=== PATIENT | male | born 1970 | race Caucasian/White ===

== ENCOUNTER 2017-03-02 20:57 | Inpatient (IN) | payer OTHER ==
[~2017-03-02 20:57] MED LIST: AMLO5 PO; CABE0.5T PO; LISI-586 PO; MULT-135 PO; VIAG100T PO
[2017-03-02 20:59] VITALS: BP 151/74; PULSE 66; RESP 16; TEMP 97.8; O2SAT 98
[2017-03-02 22:33] VITALS: BP 162/82; PULSE 65; RESP 18; O2SAT 98
[2017-03-02] MEDS ORDERED: SODIUM CHLOR 0.9% 1000 ML INJ 1,000 ML IV SCH (22:46)
[2017-03-02 22:48] VITALS: O2SAT 96
[2017-03-02] MEDS ORDERED: ONDANSETRON HCL 4 MG/2 ML VIAL IVP ONE (23:00)
[2017-03-02] MEDS ORDERED: HYDROmorphone HCL PF 1 MG/ML VIAL IVS ONE (23:00)
[2017-03-02] MEDS ORDERED: SODIUM CHLORIDE 0.9% FLUSH 10 ML FLUSH IV FLUSH PRN (23:00)
[2017-03-02 23:08] LABS: AUTOMATED NEUTROPHIL # 13.1 TH/MM3 (1.8-7.7); BASOPHIL # 0.1 TH/MM3 (0-0.2); BASOPHIL % 0.5 % (0.0-2.0); HEMATOCRIT 42.6 % (39.0-51.0); HEMO FLAGS DIFF FINAL; LYMPH % 6.6 % (9.0-44.0); MEAN CELL VOLUME 89.7 FL (80.0-100.0); MEAN CORPUSCULAR HEMOGLOBIN 30.7 PG (27.0-34.0); MEAN CORPUSCULAR HGB CONC 34.2 % (32.0-36.0); MONO % 3.5 % (0.0-8.0); NEUT % 89.4 % (16.0-70.0); PLATELET COUNT 220 TH/MM3 (150-450); RED BLOOD COUNT 4.75 MIL/MM3 (4.50-5.90); RED CELL DISTRIBUTION WIDTH 12.6 % (11.6-17.2); WHITE BLOOD COUNT 14.7 TH/MM3 (4.0-11.0)
[2017-03-02 23:31] LABS: ANION GAP 9 MEQ/L (5-15); AST (GOT) 27 U/L (15-37); BICARBONATE 30.9 MEQ/L (21.0-32.0); BLOOD UREA NITROGEN 11 MG/DL (7-18); CHLORIDE 102 MEQ/L (98-107); GLOMERULAR FILTRATION RATE 83 ML/MIN (>89); POTASSIUM 3.8 MEQ/L (3.5-5.1); SODIUM (NA) 142 MEQ/L (136-145)
[2017-03-02 23:34] LABS: ALKALINE PHOSPHATASE 72 U/L (45-117); ALT (GPT) 50 U/L (12-78); TOTAL BILIRUBIN ADULT 1.4 MG/DL (0.2-1.0)
[2017-03-03 00:14] LABS: BLOOD, URINE NEG (NEG); COMMENT (UR) CULT NOT INDICATED; CULTURE IF INDICATED CULT NOT INDICATED; GLUCOSE,URINE NEG (NEG); KETONE, URINE 80 mg/dL (NEG); MUCUS URINE FEW /lpf (OCC); NITRITE,URINE NEG (NEG); SQUAMOUS EPITHELIAL CELL URINE <1 /hpf (0-5); URINE COLOR YELLOW (YELLW/STRAW)
--- NOTE | 2017-03-03 01:15 | RADRPT ---
EXAM DATE/TIME: 03/03/2017 00:10 [place] COMPARISON: No previous studies available for comparison. INDICATIONS : Right upper quadrant pain. MEDICAL HISTORY : Hypertension. Khris's disease. sleep apnea. SURGICAL HISTORY : None. ENCOUNTER: Initial ACUITY: 1 day PAIN SCORE: 7/10 LOCATION: Right upper quadrant MEASUREMENTS: LIVER: 18.7 cm length COMMON DUCT: 5 mm RIGHT KIDNEY: 13.4 x 6.4 x 5.3 cm FINDINGS: LIVER: Normal echotexture without focal lesion or ductal dilatation. Hepatopedal flow within the portal vein . COMMON DUCT: No intraluminal mass or stone visualized. GALLBLADDER: A freely mobile calcified gallstone is observed. No pericholecystic fluid or gallbladder wall thicken ing. PANCREAS: The visualized portions are within normal limits. RIGHT KIDNEY: No evidence of hydronephrosis, stone, or mass. CONCLUSION: 1. Cholelithiasis without sonographic evidence to suggest acute cholecystitis. Noé Hines Jr., MD on March 03, 2017 at 1:11 Board Certified Radiologist. This report was verified electronically.
[2017-03-03] MEDS ORDERED: PIPERACIL-TAZO 3.375 GM PREMIX 50 ML IV ONE (01:30)
[2017-03-03 02:08] VITALS: BP 125/59; PULSE 65; RESP 18; TEMP 98.1; O2SAT 95
--- NOTE | 2017-03-03 03:24 | PD ---
HPI Chief Complaint: GI Complaint Time Seen by Provider: 22:34 Travel History International Travel<30 days: No Contact w/Intl Traveler<30days: No Traveled to known affect area: No History of Present Illness HPI This is a 46-year-old male who presents to the emergency department with epigastric and right upper quadrant abdominal pain that started at 5 PM this evening, constant, moderate severity associated with multiple episodes of vomiting. He denies any fevers or chills. He denies any diarrhea. He says last bowel movement was this morning and was normal. He denies any dysuria or hematuria. He's never had symptoms like this before. He's never had any abdominal surgeries. PFSH Past Medical History Hypertension: Yes Tetanus Vaccination: < 5 Years Influenza Vaccination: No Past Surgical History Surgical History: No Previous Surgery Social History Alcohol Use: Yes Tobacco Use: No Substance Use: No Allergies-Medications (Allergen,Severity, Reaction): Coded Allergies: No Known Allergies (Verified , 03/02/17) Reported Meds & Prescriptions Reported Meds & Active Scripts Active Reported Cabergoline 0.5 Mg Tab 0.5 Mg PO 3XWEEKLY Zestoretic (Lisinopril-Hctz) 20-12.5 Mg Tab 1 Tab PO DAILY Norvasc (Amlodipine Besylate) 5 Mg Tab 5 Mg PO DAILY Multi Vitamin (Multiple Vitamin) 1 Tab Tab 1 Tab PO DAILY Review of Systems Except as stated in HPI: all other systems reviewed are Neg Physical Exam Narrative GENERAL:Well appearing, no acute distress SKIN: Focused skin assessment warm and dry. HEAD: Atraumatic. Normocephalic. EYES: Pupils equal and round. No injection or drainage. ENT: Moist mucous membranes NECK: Trachea midline. CARDIOVASCULAR: Regular rate and rhythm. No murmur appreciated. RESPIRATORY: Clear to auscultation. Breath sounds equal bilaterally. GASTROINTESTINAL: Abdomen soft, tender to palpation in the right upper quadrant and epigastrium with a positive Noel's sign MUSCULOSKELETAL: No obvious deformities. NEUROLOGICAL: Awake and alert. No obvious cranial nerve deficits. Moving all extremities. PSYCHIATRIC: Appropriate mood and affect; insight and judgment normal. Data Data Last Documented VS Vital Signs Date Time Temp Pulse Resp B/P Pulse Ox O2 Delivery O2 Flow Rate FiO2 03/02/17 22:48 96 Room Air 03/02/17 22:33 65 18 162/82 03/02/17 20:59 97.8 Orders Complete Blood Count With Diff (03/02/17 22:46) Comprehensive Metabolic Panel (03/02/17 22:46) Lipase (03/02/17 22:46) Urinalysis - C+S If Indicated (03/02/17 22:46) Us Abdomen Gallbladder (03/02/17 ) Iv Access Insert/Monitor (03/02/17 22:46) Ecg Monitoring (03/02/17 22:46) Oximetry (03/02/17 22:46) Ondansetron Inj (Zofran Inj) (03/02/17 23:00) Sodium Chlor 0.9% 1000 Ml Inj (Ns 1000 M (03/02/17 22:46) Sodium Chloride 0.9% Flush (Ns Flush) (03/02/17 23:00) Hydromorphone Pf Inj (Dilaudid Pf Inj) (03/02/17 23:00) Piperacil-Tazo 3.375 Gm Premix (Zosyn 3. (03/03/17 01:30) Electrocardiogram (03/03/17 ) Admit Order (Ed Use Only) (03/03/17 01:33) Labs Laboratory Tests Test 03/02/17 03/02/17 22:50 23:10 White Blood Count 14.7 TH/MM3 Red Blood Count 4.75 MIL/MM3 Hemoglobin 14.6 GM/DL Hematocrit 42.6 % Mean Corpuscular Volume 89.7 FL Mean Corpuscular Hemoglobin 30.7 PG Mean Corpuscular Hemoglobin 34.2 % Concent Red Cell Distribution Width 12.6 % Platelet Count 220 TH/MM3 Mean Platelet Volume 8.8 FL Neutrophils (%) (Auto) 89.4 % Lymphocytes (%) (Auto) 6.6 % Monocytes (%) (Auto) 3.5 % Eosinophils (%) (Auto) 0.0 % Basophils (%) (Auto) 0.5 % Neutrophils # (Auto) 13.1 TH/MM3 Lymphocytes # (Auto) 1.0 TH/MM3 Monocytes # (Auto) 0.5 TH/MM3 Eosinophils # (Auto) 0.0 TH/MM3 Basophils # (Auto) 0.1 TH/MM3 CBC Comment DIFF FINAL Differential Comment Sodium Level 142 MEQ/L Potassium Level 3.8 MEQ/L Chloride Level 102 MEQ/L Carbon Dioxide Level 30.9 MEQ/L Anion Gap 9 MEQ/L Blood Urea Nitrogen 11 MG/DL Creatinine 0.98 MG/DL Estimat Glomerular Filtration 83 ML/MIN Rate Random Glucose 156 MG/DL Calcium Level 9.2 MG/DL Total Bilirubin 1.4 MG/DL Aspartate Amino Transf 27 U/L (AST/SGOT) Alanine Aminotransferase 50 U/L (ALT/SGPT) Alkaline Phosphatase 72 U/L Total Protein 7.7 GM/DL Albumin 4.3 GM/DL Lipase 226 U/L Urine Color YELLOW Urine Turbidity HAZY Urine pH 7.0 Urine Specific [place] 1.027 Urine Protein TRACE mg/dL Urine Glucose (UA) NEG mg/dL Urine Ketones 80 mg/dL Urine Occult Blood NEG Urine Nitrite NEG Urine Bilirubin NEG Urine Urobilinogen LESS THAN 2.0 MG/DL Urine Leukocyte Esterase NEG Urine RBC 1 /hpf Urine WBC 1 /hpf Urine Squamous Epithelial <1 /hpf Cells Urine Amorphous Sediment RARE Urine Mucus FEW /lpf Microscopic Urinalysis Comment CULT NOT INDICATED MDM Medical Decision Making Medical Screen Exam Complete: Yes Emergency Medical Condition: Yes Interpretation(s) Leukocytosis 89% neutrophils Electrolytes are reassuring Total bilirubin is 1.4 Lipase is 226 Urinalysis: No infection Last 24 hours Impressions Gall Bladder Ultrasound 03/02/17 0000 Signed Impressions: Service Date/Time: Friday, March 03, 2017 00:10 - CONCLUSION: 1. Cholelithiasis without sonographic evidence to suggest acute cholecystitis. Noé Hines Jr., MD Differential Diagnosis Acute cholecystitis, cholelithiasis, cholangitis, choledocholithiasis, gastritis , peptic ulcer disease, appendicitis Narrative Course This is a 46-year-old male who presents to the emergency department with right upper quadrant and epigastric abdominal pain associated with multiple episodes of vomiting. He is placed in a monitor and an IV was established. Labs are obtained which demonstrate a white blood cell count of 14 with 89% neutrophils. He has a total bilirubin of 1.4. Ultrasound was performed which demonstrates cholelithiasis. Given the patient's leukocytosis, vomiting, and marked tenderness in the right upper quadrant, as well as leukocytosis and elevated total bilirubin, his symptoms are consistent with acute cholecystitis. I discussed this with Dr. Mckeon who requested he be admitted to general surgery and he will be evaluated in the morning. Patient was given a dose of IV Zosyn. Physician Communication Physician Communication Discussed with Dr. Gracia Diagnosis Primary Impression: Cholecystitis Admitting Information Admitting Physician Requests: Observation Yesica Vanessa MD March 03, 2017 03:24
[2017-03-03] MEDS ORDERED: ONDANSETRON HCL 4 MG/2 ML VIAL IV ONE (03:45)
[2017-03-03 05:00] VITALS: BP 118/58; PULSE 62; RESP 16; O2SAT 97
[2017-03-03] MEDS ORDERED: HYDROmorphone HCL PF 1 MG/ML VIAL IV PUSH PRN (05:00)
[2017-03-03] MEDS ORDERED: SODIUM CHLOR 0.9% 1000 ML INJ 1,000 ML IV SCH (05:00)
[2017-03-03] MEDS ORDERED: ONDANSETRON HCL 4 MG/2 ML VIAL IV PUSH PRN (05:00)
[2017-03-03 05:30] VITALS: BP 167/79; PULSE 68; RESP 18; TEMP 97.4; O2SAT 97
[2017-03-03 05:36] VITALS: BP 120/67
[2017-03-03 07:22] VITALS: BP 142/71; PULSE 93; RESP 18; TEMP 99; O2SAT 98
[2017-03-03] MEDS ORDERED: PIPERACIL-TAZO 3.375 GM PREMIX 50 ML IV SCH ×2 (07:30→15:00)
--- NOTE | 2017-03-03 11:14 | EKG ---
Date Performed: 03/03/2017 Time Performed: 02:14:17 PTAGE: 46 years EKG: Sinus rhythm MODERATE INTRAVENTRICULAR CONDUCTION DELAY NONSPECIFIC T-WAVE ABNORMALITY BORDERLINE ECG NO PREVIOUS TRACING DOCTOR: Dorian Burrell Interpretating Date/Time 03/03/2017 11:12:58
[2017-03-03] MEDS ORDERED: ONDANSETRON HCL 4 MG/2 ML VIAL IV PUSH ONE (12:00)
[2017-03-03] MEDS ORDERED: PROPOFOL 200 MG/20 ML AMP IV ONE (12:00)
[2017-03-03] MEDS ORDERED: NEOSTIGMINE METHYLSULFATE 10 MG/10 ML VIAL IV PUSH ONE (12:00)
[2017-03-03] MEDS ORDERED: BUPIVACAINE/EPINEPHRINE 0.5% PF 30 ML VIAL ONE (12:35)
[2017-03-03] MEDS ORDERED: MIDAZOLAM HCL 2 MG/2 ML VIAL ONE (13:00)
[2017-03-03] MEDS ORDERED: FAMOTIDINE 20 MG/2 ML VIAL ONE (13:01)
[2017-03-03] MEDS ORDERED: BUPIVACAINE/EPINEPHRINE 0.25% 50 ML VIAL INFIL ONE (13:34)
[2017-03-03] MEDS ORDERED: Post-op Orders (for Pharmacy) MISC XX ONE (14:00)
[2017-03-03] MEDS ORDERED: ACETAMINOPHEN/HYDROcodone 325 MG/5 MG TAB PO PRN (14:00)
[2017-03-03] MEDS ORDERED: MAGNESIUM HYDROXIDE SUSP 30 ML CUP PO PRN (14:00)
[2017-03-03] MEDS ORDERED: ONDANSETRON HCL 4 MG/2 ML VIAL IV PRN (14:00)
[2017-03-03] MEDS ORDERED: MORPHINE SULFATE 4 MG/ML INJ IV PRN (14:00)
[2017-03-03] MEDS ORDERED: SODIUM CHLORIDE 0.9% FLUSH 10 ML FLUSH IV FLUSH PRN (14:00)
[2017-03-03] MEDS ORDERED: METOCLOPRAMIDE HCL 10 MG/2 ML VIAL IVS PRN (14:00)
[2017-03-03] MEDS: SODIUM CHLOR 0.9% 1000 ML INJ 1,000 ML IV SCH ×2 (14:30→23:45)
[2017-03-03] MEDS ORDERED: fentaNYL CITRATE 250 MCG/5 ML AMP ONE (14:35)
[2017-03-03] MEDS ORDERED: DO NOT ADM ANY ANTICOAGULANT DRUGS PRN (15:00)
[2017-03-03] MEDS: ACETAMINOPHEN/HYDROcodone 325 MG/5 MG TAB PO PRN ×2 (18:45→23:44)
[2017-03-03 20:00] VITALS: BP 118/63; PULSE 76; RESP 18; TEMP 98.9; O2SAT 92
[2017-03-03] MEDS: SODIUM CHLORIDE 0.9% FLUSH 10 ML FLUSH IV FLUSH SCH (21:34)
[2017-03-03] MEDS: DOCUSATE SODIUM 100 MG CAP PO SCH (21:34)
[2017-03-03] MEDS: PIPERACIL-TAZO 3.375 GM PREMIX 50 ML IV SCH (21:34)
[2017-03-04] VITALS: BP 111/67; PULSE 76; RESP 16; TEMP 97.3; O2SAT 92
[2017-03-04] MEDS: PIPERACIL-TAZO 3.375 GM PREMIX 50 ML IV SCH ×2 (02:19→08:17)
[2017-03-04] MEDS: ACETAMINOPHEN/HYDROcodone 325 MG/5 MG TAB PO PRN ×2 (04:39→08:45)
[2017-03-04 08:00] VITALS: BP 112/64; PULSE 60; RESP 18; TEMP 97.7; O2SAT 94
[2017-03-04] MEDS: DOCUSATE SODIUM 100 MG CAP PO SCH (08:16)
[2017-03-04] MEDS: SODIUM CHLORIDE 0.9% FLUSH 10 ML FLUSH IV FLUSH SCH (08:22)
[2017-03-04] MEDS: SODIUM CHLOR 0.9% 1000 ML INJ 1,000 ML IV SCH (08:22)
--- NOTE | 2017-03-04 11:25 | HHI.PR ---
Subjective Subjective Notes 46yo male POD#1 laparoscopic cholecystectomy. Sitting up in bed in no acute distress. Tolerating fluids. Passing flatus Objective Vitals/I&O Vital Signs Date Time Temp Pulse Resp B/P Pulse Ox O2 Delivery O2 Flow Rate FiO2 03/04/17 08:00 97.7 60 18 112/64 94 03/04/17 05:39 18 03/04/17 00:00 97.3 76 16 111/67 92 03/03/17 20:00 98.9 76 18 118/63 92 03/03/17 17:45 98.1 72 16 118/62 97 Nasal Cannula 2 03/03/17 17:30 64 16 107/59 97 Nasal Cannula 2 03/03/17 17:00 62 16 114/65 96 Nasal Cannula 2 03/03/17 16:30 66 16 109/62 96 Nasal Cannula 2 03/03/17 16:00 65 16 108/62 96 Nasal Cannula 2 03/03/17 15:45 64 16 111/65 95 Nasal Cannula 2 03/03/17 15:30 66 16 118/67 96 Nasal Cannula 2 03/03/17 15:15 67 16 112/64 96 Nasal Cannula 2 03/03/17 15:00 67 16 115/68 94 Nasal Cannula 2 03/03/17 14:45 67 16 127/72 94 Nasal Cannula 2 03/03/17 14:30 73 16 125/60 96 Nasal Cannula 2 03/03/17 14:27 98.2 83 16 135/65 96 Nasal Cannula 2 Vital Signs Date Time Temp Pulse Resp B/P Pulse Ox O2 Delivery O2 Flow Rate FiO2 03/04/17 08:00 97.7 60 18 112/64 94 03/03/17 17:45 Nasal Cannula 2 Labs Laboratory Tests Test 03/02/17 03/02/17 22:50 23:10 White Blood Count 14.7 TH/MM3 Red Blood Count 4.75 MIL/MM3 Hemoglobin 14.6 GM/DL Hematocrit 42.6 % Mean Corpuscular Volume 89.7 FL Mean Corpuscular Hemoglobin 30.7 PG Mean Corpuscular Hemoglobin 34.2 % Concent Red Cell Distribution Width 12.6 % Platelet Count 220 TH/MM3 Mean Platelet Volume 8.8 FL Neutrophils (%) (Auto) 89.4 % Lymphocytes (%) (Auto) 6.6 % Monocytes (%) (Auto) 3.5 % Eosinophils (%) (Auto) 0.0 % Basophils (%) (Auto) 0.5 % Neutrophils # (Auto) 13.1 TH/MM3 Lymphocytes # (Auto) 1.0 TH/MM3 Monocytes # (Auto) 0.5 TH/MM3 Eosinophils # (Auto) 0.0 TH/MM3 Basophils # (Auto) 0.1 TH/MM3 CBC Comment DIFF FINAL Differential Comment Sodium Level 142 MEQ/L Potassium Level 3.8 MEQ/L Chloride Level 102 MEQ/L Carbon Dioxide Level 30.9 MEQ/L Anion Gap 9 MEQ/L Blood Urea Nitrogen 11 MG/DL Creatinine 0.98 MG/DL Estimat Glomerular Filtration 83 ML/MIN Rate Random Glucose 156 MG/DL Calcium Level 9.2 MG/DL Total Bilirubin 1.4 MG/DL Aspartate Amino Transf 27 U/L (AST/SGOT) Alanine Aminotransferase 50 U/L (ALT/SGPT) Alkaline Phosphatase 72 U/L Total Protein 7.7 GM/DL Albumin 4.3 GM/DL Lipase 226 U/L Urine Color YELLOW Urine Turbidity HAZY Urine pH 7.0 Urine Specific [place] 1.027 Urine Protein TRACE mg/dL Urine Glucose (UA) NEG mg/dL Urine Ketones 80 mg/dL Urine Occult Blood NEG Urine Nitrite NEG Urine Bilirubin NEG Urine Urobilinogen LESS THAN 2.0 MG/DL Urine Leukocyte Esterase NEG Urine RBC 1 /hpf Urine WBC 1 /hpf Urine Squamous Epithelial <1 /hpf Cells Urine Amorphous Sediment RARE Urine Mucus FEW /lpf Microscopic Urinalysis Comment CULT NOT INDICATED Radiology Last Impressions Gall Bladder Ultrasound 03/02/17 0000 Signed Impressions: Service Date/Time: Friday, March 03, 2017 00:10 - CONCLUSION: 1. Cholelithiasis without sonographic evidence to suggest acute cholecystitis. Noé Hines Jr., MD Cardiovascular: Regular Lungs: Clear Abdomen: Post-op tenderness Extremities: Perfused Wound Wound : Wound Location: Abdomen Appearance: Clean & Dry A/P Assessment and Plan Continue with frequent ambulation Advance diet as tolerated Low fat diet x 1 month Follow up with Dr. Gracia in 10-14 days The exam, history, and the medical decision-making described in the above note were completed with the assistance of the mid-level provider. I reviewed and agree with the findings presented. I attest that I had a [id number] encounter with the patient on the same day, and personally performed and documented my assessment and findings in the medical record. Discharge Planning D/C home today Claribel Ramos March 04, 2017 11:25 Yonas Gracia MD March 12, 2017 09:29
[2017-03-04] MEDS ORDERED: NORC5TAB PO (11:56)
[2017-03-04 12:00] VITALS: BP 118/70; PULSE 79; RESP 18; TEMP 98.4; O2SAT 94
[2017-03-04] MEDS ORDERED: ENOXAPARIN SODIUM 40 MG/0.4 ML SYRINGE SQ SCH (14:00)
--- NOTE | 2017-03-05 08:16 | MP ---
cc: YONAS GRACIA DATE OF SURGERY: 03/03/2017 DATE OF : 1970 PREOPERATIVE DIAGNOSIS Cholelithiasis with cholecystitis. POSTOPERATIVE DIAGNOSIS Cholelithiasis with cholecystitis. PROCEDURE Laparoscopic cholecystectomy. SURGEON Yonas Gracia ANESTHESIA General endotracheal. ESTIMATED BLOOD LOSS Scant. FINDINGS Inflamed gallbladder with stones. SPECIMEN Gallbladder with stones. COMPLICATIONS None. OPERATION The patient was brought to the operating room and placed on the operating table in a supine position. A bilateral sequential inflation device was placed on the lower extremities. General anesthesia was instituted, antibiotics initiated. The abdomen was prepped and draped sterilely. A point in the periumbilical region was anesthetized with 0.25% Marcaine with epinephrine. A skin incision was made. A 5 mm OptiView port was placed under direct vision, a pneumoperitoneum created. Under direct vision a 12 mm subxiphoid and two 5 mm right upper quadrant ports were placed. Prior to placement of all ports the skin and peritoneum were anesthetized with 0.25% Marcaine with epinephrine. The patient was placed in reverse Trendelenburg position, right side up. The gallbladder was retracted into the upper abdomen. The infundibulum was retracted. Calot's triangle was opened. The hepatoduodenal ligament was incised. The cystic artery was identified. It was circumferentially dissected with the Harmonic scalpel and then divided with the Harmonic scalpel. The cystic duct was identified, circumferentially dissected and divided with the Harmonic scalpel. The gallbladder was removed from the liver bed using the Harmonic scalpel. It was retrieved from the peritoneal cavity in an Endopouch through the 12 mm port site. The operative site was inspected. Hemostasis was present. There was no evidence of bile leak. CO2 was released. All ports were removed. All skin incisions were closed with 4-0 Monocryl. The abdominal wall was cleaned and a sterile dressing placed. The patient was awakened and taken to the recovery room. for the body of the operation. It is my laparoscopic cholecystectomy 10-point have his MD MOMO Montalvo/ATIF /6:28 PM /8:12 AM
--- NOTE | 2017-03-11 15:52 | MH ---
cc: RICHI EMERY DATE OF ADMISSION 03/03/2017 HISTORY OF THE PRESENT ILLNESS This is a patient who presented to the emergency room with complaint of abdominal pain. The pain was located in the epigastrium and right upper quadrant. It started about 05:00 p.m. of the day prior. The pain was associated with nausea and vomiting. No fevers or chills. The patient states he had similar symptoms approximately a week ago. PAST MEDICAL HISTORY Significant for: Hypertension. PAST SURGICAL HISTORY Negative. MEDICATIONS The patient is on medications at home that include: 1. Norvasc. 2. Zestoretic. ALLERGIES NO KNOWN DRUG ALLERGIES. SOCIAL HISTORY He does not smoke. He drinks alcohol occasionally. FAMILY HISTORY Noncontributory. REVIEW OF SYSTEMS Significant for above. All other 10-point review negative. PHYSICAL EXAMINATION GENERAL: On exam the patient is laying in stretcher in no acute distress. HEENT: His pupils are equal and reactive. Sclera anicteric. Trachea is midline. LUNGS: Respirations clear. CARDIOVASCULAR: Regular. GASTROINTESTINAL: Soft, positive tenderness greatest in the right upper quadrant. MUSCULOSKELETAL: No deformities. NEUROLOGIC: Nonfocal. LABORATORY DATA White count, the patient's WBC is 14.7. LFTs within normal limits. IMAGING The patient had ultrasound of the gallbladder which reveals gallstones. ASSESSMENT This is a patient with acute cholecystitis and cholelithiasis. PLAN The plan is for laparoscopic cholecystectomy. Risks and benefits explained to include but not be exclusive to infection, bleeding, bowel injury, bile duct injury. Technical aspects explained as well as pre and postoperative course. The patient verbalized understanding and consent was obtained. MD MOMO Montalvo/CODEY /2:22 PM /3:41 PM
== END 2017-03-04 14:17 | disposition home or self-care (01) | DRG 419 ==
LOC: NEPC 20:57 → NEDA 03-03 01:35 → NEPHCDU 03-03 05:25 → OBSVTOIN 03-03 14:05 → N07B 03-03 14:38
PROVIDERS: ADMIT Surgery; ATTEND Surgery
PROC: 0FT44ZZ Resection of Gallbladder, Percutaneous Endoscopic Approach (ICD-10-PCS; principal; 2017-03-03 13:05)
DX: K80.12 Calculus of gallbladder with acute and chronic cholecystitis without obstruction (principal); I10 Essential (primary) hypertension
CPT/HCPCS: 76705; 80053; 81001; 83690; 85025; 88304; 93005; 94150; 96374; 96375; J1170; J2250; J2405; J2543; J2710; J3010; J7030